=== PATIENT | male | born 1965 | race Caucasian/White ===

== ENCOUNTER 2017-03-29 23:55 | Emergency (ER) | payer OTHER ==
[~2017-03-29] VITALS: Ht 185.4 cm; Wt 90.7 kg
== END 2017-03-30 01:45 | disposition home or self-care (01) ==
LOC: ED 23:55
DX: F15.10 Other stimulant abuse, uncomplicated (principal)
CPT/HCPCS: 36415; 70450; 80053; 81001; 85025; 99284; G0480